=== PATIENT | female | born 1990 | race Caucasian/White ===

== ENCOUNTER 2018-11-23 16:15 | Emergency (ER) | payer MEDICAID ==
[~2018-11-23] VITALS: Ht 162.6 cm; Wt 104.3 kg
[~2018-11-23 16:15] MED LIST: ALBU90OI INH; BENZ100A PO; BIRTH CONTROL; BIRTH CONTROL PO; CODGUAEL PO; CYCL10 PO; Flonase 0.05% N16 GM; HYDCHL25 PO; IBUP800 PO; LISI5 PO; METF500 PO; Norco 5-325 Ta1 EACH PO; PSEU120ER PO; Percocet 5-3251 EACH PO; Valium5 MG PO; Zofran Odt8 MG SL
[2018-11-23] MEDS ORDERED: Norco 5-325 Ta1 EACH PO (16:59)
[2018-11-23] MEDS ORDERED: Robaxin-750750 MG PO (16:59)
[2018-11-23] MEDS ORDERED: PRED10 PO (16:59)
== END 2018-11-23 17:16 | disposition home or self-care (01) ==
LOC: ER 16:15
DX: M54.42 Lumbago with sciatica, left side (principal); G89.29 Other chronic pain; Z88.1 Allergy status to other antibiotic agents; Z79.899 Other long term (current) drug therapy; Z79.52 Long term (current) use of systemic steroids; Z79.84 Long term (current) use of oral hypoglycemic drugs; I10 Essential (primary) hypertension
CPT/HCPCS: 96372; 99283-25; A9270-GY; J1885

== ENCOUNTER 2019-02-28 11:35 | Inpatient (IN) | payer BC, MEDICAID ==
[~2019-02-28] VITALS: Ht 162.6 cm; Wt 139.2 kg
[~2019-02-28 11:35] MED LIST changes: -LISI5 PO; +PRED10 PO; +Prinivil10 MG PO; +Robaxin-750750 MG PO
[2019-02-28 12:12] LABS: Source, Urine Clean Catch
[2019-02-28 12:12] LABS: BASOPHILS ABSOLUTE AUTO 0.07 K/mm3 (0.00-0.23); BASOPHILS PERCENT AUTO 1 % (0-2); EOSINOPHILS ABSOLUTE AUTO 0.08 K/mm3 (0.00-0.68); EOSINOPHILS PERCENT AUTO 1 % (0-6); Hematocrit 49.7 % (33.0-51.0); IMMATURE GRAN ABSOLUTE AUTO 0.02 K/mm3 (0.00-0.10); IMMATURE GRAN PERCENT AUTO 0 % (0-1); LYMPHOCYTES ABSOLUTE AUTO 2.56 K/mm3 (0.84-5.20); LYMPHOCYTES PERCENT AUTO 24 % (21-46); MONOCYTES ABSOLUTE AUTO 0.51 K/mm3 (0.16-1.47); MONOCYTES PERCENT AUTO 5 % (4-13); Mean Corpuscular HGB 26.5 pg (26.0-34.0); Mean Corpuscular HGB Conc 30.2 g/dL (31.5-36.5); Mean Corpuscular Volume 88 fL (80-100); Mean Platelet Volume 9.9 fL (9.1-12.4); NEUTROPHILS ABSOLUTE AUTO 7.51 K/mm3 (1.96-9.15); NEUTROPHILS PERCENT AUTO 70 % (41-73); Platelet Count 463 K/mm3 (150-400); RDW Coefficient Variation 15.1 % (11.7-14.2); RDW Standard Deviation 48.7 fL (35.1-46.3); Red Blood Cell Count 5.66 M/mm3 (3.80-5.20); White Blood Cell Count 10.75 K/mm3 (4.00-11.30)
[2019-02-28 12:29] LABS: Alanine Aminotransfer (ALT/SGP 22 U/L (12-78); Albumin, Blood 3.8 g/dL (3.4-5.0); Alk Phos 53 U/L (50-136); Anion Gap 9 mmol/L (6-16); Aspartate Aminotrans (AST/SGOT 16 U/L (12-37); Bilirubin, Total 0.9 mg/dL (0.1-1.0); Blood Urea Nitrogen 15 mg/dL (8-24); CO2, Blood 25 mmol/L (21-32); Calcium, Blood 9.4 mg/dL (8.5-10.1); Chloride, Blood 105 mmol/L (98-108); Creatinine, Blood 0.94 mg/dL (0.40-1.00); Globulin, Blood 3.9 g/dL (2.2-4.0); Glomerular Filtration Rate >60 (60-); Glucose, Blood 90 mg/dL (70-99); Sodium, Blood 139 mmol/L (136-145); Total Protein, Blood 7.7 g/dL (6.4-8.2); Troponin I 0.045 ng/mL (0.000-0.040)
[2019-02-28 12:36] LABS: Appearance, Urine Hazy (Clear); Bilirubin, Urine Neg (Neg); Blood, Urine 1+ (Neg); Color, Urine Yellow (P-Yellow); Glucose Qualitative, Urine Neg (Neg); Ketones, Urine Neg (Neg); Leukocyte Esterase, Urine 1+ (Neg); Nitrite, Urine Neg (Neg); Protein, Urine 3+ (Neg); Urobilinogen, Urine 1+ (Normal)
[2019-02-28 12:55] LABS: Bacteria Mod /hpf; Red Blood Cells, Urine 0-2 /hpf (0-2); Squamous Epithelial Cells Many /hpf (Few)
[2019-02-28 12:56] LABS: Hyaline Casts 0-2 /lpf (0-2)
[2019-02-28] MEDS ORDERED: Hydrochloroth12.5 MG PO (14:14)
--- NOTE | 2019-02-28 15:21 | NUR ---
Echocardiogram completed.
--- NOTE | 2019-02-28 18:22 | NUR ---
SHIFT SUMMARY PT IS A NEW ADMISSION FROM ED THIS AFTERNOON. COMPLAINTS OF PAIN OR NAUSEA. PT ORIENTED TO ROOM. CALL LIGHT IN REACH. LABS DRAWN PER ORDERS. NO DISTRESS AT THIS TIME. WILL CONTINUE TO MONITOR AND REPORT TO ONCOMING RN.
--- NOTE | 2019-03-01 03:36 | NUR ---
shift summary: Pt still getting short of breath with exertion but pt states it's not so bad. Pt recieved lasix last pm and had over 2000 cc urine output. Pt to cat scan last pm to check for PE. Cortisol level drawn at 2300 last pm and dexamethasone given shortly after. Lungs diminished throughout but no wheezing heard.
[2019-03-01 08:24] LABS: Anion Gap 10 mmol/L (6-16); Blood Urea Nitrogen 14 mg/dL (8-24); Bun/Creatinine Ratio 16.1 (12.0-20.0); CO2, Blood 25 mmol/L (21-32); Calcium, Blood 8.8 mg/dL (8.5-10.1); Chloride, Blood 104 mmol/L (98-108); Creatinine, Blood 0.87 mg/dL (0.40-1.00); Glomerular Filtration Rate >60 (60-); Glucose, Blood 86 mg/dL (70-99); Potassium, Blood 3.9 mmol/L (3.5-5.5); Sodium, Blood 139 mmol/L (136-145)
[2019-03-01 08:26] LABS: Troponin I 0.031 ng/mL (0.000-0.040)
--- NOTE | 2019-03-01 18:03 | NUR ---
SHIFT SUMMARY A AND OX3. INDEPENDENT IN ROOM. DENIES ANY PAIN OR DISCOMFORT. MULTIPLE FAMILY MEMBERS IN ROOM THROUGHOUT DAY. NEW DX CHF AWAITING CARDIOLOGY CONSULT. EATING AND DRINKING WELL. MORBID OBESITY. IV LASIX. PLEASANT CALM. SPOUSE TO STAY WITH PATIENT OVERNIGHT.
[2019-03-02 05:20] LABS: Anion Gap 6 mmol/L (6-16); Blood Urea Nitrogen 18 mg/dL (8-24); CHOL/HDL RATIO 4.6; CO2, Blood 32 mmol/L (21-32); Calcium, Blood 8.7 mg/dL (8.5-10.1); Chloride, Blood 103 mmol/L (98-108); Cholesterol 101 mg/dL (50-200); Creatinine, Blood 1.06 mg/dL (0.40-1.00); Glomerular Filtration Rate >60 (60-); Glucose, Blood 88 mg/dL (70-99); HDL Cholesterol 22 mg/dL (>39); LDL/HDL RATIO 2.4; Low Density Lipoprotein Chol 53 mg/dL (0-110); Potassium, Blood 3.4 mmol/L (3.5-5.5); Sodium, Blood 141 mmol/L (136-145); Triglycerides 129 mg/dL (30-140); Very Low Density Lipoprot Chol 25 mg/dL (6-28)
--- NOTE | 2019-03-02 12:41 | NUR ---
DR CUELLAR IN TO SEE PT THIS AM. STATE TO RE-CALL CARDIOLOGY CONSULT. [facility] CALLED, STATE DR GRISSOM EXPERT WITNESS & IS AWARE OF NEED FOR CONSULT.
--- NOTE | 2019-03-02 16:00 | NUR ---
SUMMARY PT IS A/O X4, IND IN ROOM, PLEASANT AFFECT. STATE NO SOB @ REST, MILD SOB W EXERTION, STATE FEELING SOMEWHAT IMPROVED. TRACE BLE EDEMA. LUNGS CLEAR, DECREASED, BIOX >90% ON RA. DR CUELLAR STATE THIS AM TO RECALL CARDIAC CONSULT, CALLED TO DR GRISSOM OFFICE. NO CARDIOLOGY VISIT YET TODAY, NOTIFIED CARDIOLOGY OFFICE STATE DR GRISSOM DECLINE CONSULT R/T NOT BEING DROSSER YESTERDAY, STATE TO NOTIFY DROSSER FROM PREVIOUS DAY. INFORMED DR CUELLAR, HE CALL DAY[place] TO DR FERRELL HOW STATE HE WILL SEE PT THIS AFTERNOON. PT INFORMED.
--- NOTE | 2019-03-03 04:58 | NUR ---
DRAGGER SUMMARY NO ACUTE CHANGES THIS SHIFT. PT AAOX4 AND INDEPENDENT IN ROOM. PT HAS BEEN NPO SINCE MIDNIGHT EXCEPT FOR WATER. MD ORDER STATES COMPLETE NPO AT BREAKFAST. PT HAS ONLY BEEN TAKING SMALL SIPS OF WATER. PT TO HAVE ANGIOGRAM LATER TODAY. VSS, WILL CONTINUE TO MONITOR.
[2019-03-03 05:51] LABS: Anion Gap 8 mmol/L (6-16); Blood Urea Nitrogen 22 mg/dL (8-24); Bun/Creatinine Ratio 22.2 (12.0-20.0); CO2, Blood 29 mmol/L (21-32); Calcium, Blood 8.9 mg/dL (8.5-10.1); Chloride, Blood 102 mmol/L (98-108); Creatinine, Blood 0.99 mg/dL (0.40-1.00); Glomerular Filtration Rate >60 (60-); Glucose, Blood 89 mg/dL (70-99); Potassium, Blood 3.5 mmol/L (3.5-5.5); Sodium, Blood 139 mmol/L (136-145)
--- NOTE | 2019-03-03 13:23 | NUR ---
TO [facility] IN [facility] AT 1315 BY W/C. HER HAS AWAKENED, PACKED THEIR BELONGINGS AND TOOK THEM WITH HIM OUT OF THE ROOM. SHE HAS HAD AN UNEVENTFUL MORNING. CAME BY MID-MORNING TO HAVE HER SIGN CONSENT.
--- NOTE | 2019-03-03 15:22 | NUR ---
1 CC OF AIR WAS REMOVED FROM THE TR BAND. The pt had been c/o pain 8/10 in her right thumb, worse with movement of the thumb. Pulses are palpable, the area of the right arm and right hand is soft, without any evidence of bleeding, hematoma, swelling, or bleeding. Fingers are warm, pink, and dry with brisk capillary refill. 1 cc of air removed due to the pain. Denies numbness. States afterwards that it feels a little better. No bleeding noted. TR band remains in place, and white immobilizer board is in place. Pt has been OOB to walk to the bathroom to void.
--- NOTE | 2019-03-03 16:51 | NUR ---
REMOVED 1CC FROM TR BAND. NO BLEEDING NOTED FROM PREVIOUS REMOVAL OF 1CC. PT STATES NUMBNESS HAS RESOLVED AND PAIN IN GOING DOWN. NO HEMATOMA, SWELLING OR DISCOLORATION NOTED. PULSES PALPABLE ABOVE AND BELOW SIDE. SKIN SOFT AND TENDER ON PALPABLE ABOVE SITE. CAP REFIL IS BRISK. WILL CONTINUE TO MONITOR
--- NOTE | 2019-03-03 17:31 | NUR ---
2 Additional cc of air removed from the TR band at this time. Thept is ambulatory to the bathroom, sitting on the side of the bed afterwards, eating dinner. She is refraining from use of the right arm, as instructed. Radial artery access site remains unchanged from my prior assessment.
--- NOTE | 2019-03-03 18:43 | NUR ---
2 CC AIR REMOVED FROM THE TR BAND. SITE REMAINS BEFORE.
--- NOTE | 2019-03-03 19:38 | NUR ---
PATIENT LEFT AND PATIENT IS FEELING VERY EMOTIONAL AND SAD. VITALS STABLE. CMS INTACT. NO SIGNS OF BLEEDING ON RIGHT RADIAL SITE. 2CC OF AIR TAKING OUT. DENIES ANY PAIN AT THIS TIME.
--- NOTE | 2019-03-03 20:03 | NUR ---
TRANSFER NOTE/SHIFT SUMMARY RECEIVED BEDSIDE REPORT FORM DARYL BERRY IN [facility]. PT TO ROOM AT 1415. SBA TRANSFERED TO BED FROM WHEELCHAIR. PT A&Ox4, CALM AND COOPERATIVE WITH CARE. RIGHT RADIAL SITE ASSESSED AND MONITORED T/O SHIFT, NUMBNESS TO THUMB TIP AND PAIN TO WRIST NOTED AND RELEASED 1CC AND TYLENOL x1 FOR PAIN. A TOTAL OF 6CC RELEASED FROM THE TR BAND DURING SHIFT. PT REPORTS SOB WITH EXERTION, >90% ON RA. PT RECEIVED DOSE OF IV LASIX AFTER PROCEDUE. PT DENIES NAUSEA AND HAS GOOD APPETITE. VSS. NO OTHER ACUTE CHANGES NOTED DURING SHIFT. REPORTS GIVEN TO ONCOMING RN.
--- NOTE | 2019-03-03 20:46 | NUR ---
PATIENT SITTING AT SIDE OF BED. DENIES ANY PAIN. NO CHANGE IN RADIAL SITE. CMS INTACT. 2CC OF AIR TAKEN OUT.
--- NOTE | 2019-03-03 21:22 | NUR ---
PATIENT DENIES ANY PAIN. SITTING IN BED. VITALS STABLE. CMS INTACT. NO SIGNS OF BLEEDING NOTED. 2 CC OF AIR TAKEN OUT.
--- NOTE | 2019-03-03 22:14 | NUR ---
PATIENT DENIES ANY PAIN. SITTING AT SIDE OF BED. TAKEN OUT 1CC OF AIR. NO AIR REMAINING IN TR BAND. CMS INTACT NO SIGNS OF BLEEDING. WILL CONTINUE TO MONITOR.
--- NOTE | 2019-03-03 23:35 | NUR ---
PATIENT SITTING UP IN BED. VITALS STABLE. NO SIGNS OF BLEEDING NOTED. CMS INTACT. TAKEN TR BAND OFF CLEANED SITE AND APPLIED TEGADERM. PLACED ARM BOARD BACK ON. PATIENT DENIES ANY OTHER NEEDS AT THIS TIME.
[2019-03-04 03:55] LABS: Anion Gap 7 mmol/L (6-16); Blood Urea Nitrogen 25 mg/dL (8-24); Bun/Creatinine Ratio 24.8 (12.0-20.0); CO2, Blood 32 mmol/L (21-32); Calcium, Blood 9.1 mg/dL (8.5-10.1); Chloride, Blood 100 mmol/L (98-108); Creatinine, Blood 1.01 mg/dL (0.40-1.00); Glomerular Filtration Rate >60 (60-); Glucose, Blood 98 mg/dL (70-99); Potassium, Blood 3.9 mmol/L (3.5-5.5); Sodium, Blood 139 mmol/L (136-145)
--- NOTE | 2019-03-04 05:06 | NUR ---
PATIENT CONTINUES TO SHOW NO SIGNS OF BLEEDING AT RIGHT RADIAL SITE. PATIENT ABLE TO SLEEP A LITTLE. PATIENT SLEEPS IN BED IN HIGH HORVATH'S. DENIES ANY PAIN.
--- NOTE | 2019-03-04 08:32 | NUR ---
AM NOTE. ASSUMED CARE OF PT APROX 0700, PT IS A&Ox4 AND IND IN THE ROOM. PT WAS ADMITTED FOR DYSPNEA, AND IS S/P ANGIO FROM YESTERDAY. RIGHT WRIST SITE IS C/D/I WITH NO REDNESS, SWELLING OR HEMATOMA NOTED. PT STATES SOME DISCOMFORT AT THE SITE. PT IS NSR IN THE 80'S-90'S PER BUSINESS TEST ANALYST. PT DENIES ANY CHEST PAIN/PRESSURE. L/S CLEAR T/O AND DIM IN THE BASES BUT BECOMES SLIGHTLY SOB WHEN WALKING TO THE BATHROOM. PT HAS 1+ PITTING EDEMA TO HER BLE AND TRACE EDEMA TO HER ABD AREA, THIS HAS IMPROVED PER PT AND PER NOC SHIFT RN REPORT. PT'S VS STABLE AT THIS TIME. WILL CONTINUE TO MONITOR.
[2019-03-04] MEDS ORDERED: ATOR10 PO (12:50)
[2019-03-04] MEDS ORDERED: CARV6.25 PO (12:51)
[2019-03-04] MEDS ORDERED: CLOP75 PO (12:51)
[2019-03-04] MEDS ORDERED: ENTRESTO 24 MG1 EACH PO (12:52)
[2019-03-04] MEDS ORDERED: Aldactone25 MG PO (12:53)
[2019-03-04] MEDS ORDERED: TORSE20 PO (12:53)
== END 2019-03-04 15:54 | disposition home or self-care (01) | DRG 286 ==
LOC: ER 11:35 → MEDS 11:36 → PCU 03-03 14:19
PROVIDERS: Emergency Medicine; Internal Medicine Interventional Cardiology; ADMIT Internal Medicine
PROC: B2111ZZ Fluoroscopy of Multiple Coronary Arteries using Low Osmolar Contrast (ICD-10-PCS; principal; 2019-03-03)
PROC: B2151ZZ Fluoroscopy of Left Heart using Low Osmolar Contrast (ICD-10-PCS; 2019-03-03)
PROC: 4A023N7 Measurement of Cardiac Sampling and Pressure, Left Heart, Percutaneous Approach (ICD-10-PCS; 2019-03-03)
DX: I11.0 Hypertensive heart disease with heart failure (principal); I50.21 Acute systolic (congestive) heart failure; Z68.42 Body mass index [BMI] 45.0-49.9, adult; E28.2 Polycystic ovarian syndrome; I27.20 Pulmonary hypertension, unspecified; E66.01 Morbid (severe) obesity due to excess calories; I25.10 Atherosclerotic heart disease of native coronary artery without angina pectoris; L83 Acanthosis nigricans; E87.6 Hypokalemia; Z79.02 Long term (current) use of antithrombotics/antiplatelets
CPT/HCPCS: 36415; 71046; 71260; 80048; 80053; 80061; 81001; 81025; 82024; 82533; 83036; 83880; 84145; 84439; 84443; 84484; 85025; 87086; 93005; 93010; 93306; 93458; 96372; 96374; 96375; 99152; 99153; 99285-25; A9270; C1769; C1894; G0378; J0360; J1644; J1650; J1940; J2250; J3010; J7030; Q9967

== ENCOUNTER 2019-03-15 09:19 | Emergency (ER) | payer BC ==
[~2019-03-15] VITALS: Ht 160 cm; Wt 121.6 kg
[~2019-03-15 09:19] MED LIST changes: +ATOR10 PO; +Aldactone25 MG PO; +CARV6.25 PO; +CLOP75 PO; +ENTRESTO 24 MG1 EACH PO; +Hydrochloroth12.5 MG PO; +TORSE20 PO
[2019-03-15] MEDS ORDERED: METOPROLOL SUCC25 MG PO (11:27)
[2019-03-15 11:34] LABS: BASOPHILS ABSOLUTE AUTO 0.11 K/mm3 (0.00-0.23); BASOPHILS PERCENT AUTO 1 % (0-2); EOSINOPHILS ABSOLUTE AUTO 0.34 K/mm3 (0.00-0.68); EOSINOPHILS PERCENT AUTO 3 % (0-6); Hemoglobin 15.8 g/dL (11.5-16.0); IMMATURE GRAN ABSOLUTE AUTO 0.04 K/mm3 (0.00-0.10); IMMATURE GRAN PERCENT AUTO 0 % (0-1); LYMPHOCYTES ABSOLUTE AUTO 2.59 K/mm3 (0.84-5.20); LYMPHOCYTES PERCENT AUTO 22 % (21-46); MONOCYTES ABSOLUTE AUTO 0.98 K/mm3 (0.16-1.47); MONOCYTES PERCENT AUTO 8 % (4-13); Mean Corpuscular HGB 25.8 pg (26.0-34.0); Mean Corpuscular HGB Conc 30.4 g/dL (31.5-36.5); Mean Corpuscular Volume 85 fL (80-100); Mean Platelet Volume 10.9 fL (9.1-12.4); NEUTROPHILS ABSOLUTE AUTO 7.91 K/mm3 (1.96-9.15); NEUTROPHILS PERCENT AUTO 66 % (41-73); Platelet Count 343 K/mm3 (150-400); RDW Coefficient Variation 17.3 % (11.7-14.2); RDW Standard Deviation 49.4 fL (35.1-46.3); Red Blood Cell Count 6.12 M/mm3 (3.80-5.20); White Blood Cell Count 11.97 K/mm3 (4.00-11.30)
[2019-03-15 12:12] LABS: Alanine Aminotransfer (ALT/SGP 48 U/L (12-78); Albumin, Blood 4.7 g/dL (3.4-5.0); Albumin/Globulin Ratio 1.2 (0.8-1.8); Alk Phos 62 U/L (50-136); Anion Gap 8 mmol/L (6-16); Aspartate Aminotrans (AST/SGOT 33 U/L (12-37); Bilirubin, Total 1.2 mg/dL (0.1-1.0); Blood Urea Nitrogen 32 mg/dL (8-24); Bun/Creatinine Ratio 31.7 (12.0-20.0); CO2, Blood 21 mmol/L (21-32); Calcium, Blood 10.2 mg/dL (8.5-10.1); Chloride, Blood 107 mmol/L (98-108); Creatinine, Blood 1.01 mg/dL (0.40-1.00); Glomerular Filtration Rate >60 (60-); Glucose, Blood 93 mg/dL (70-99); Potassium, Blood 4.3 mmol/L (3.5-5.5); Sodium, Blood 136 mmol/L (136-145); Total Protein, Blood 8.7 g/dL (6.4-8.2); Troponin I <0.015 ng/mL (0.000-0.040)
[2019-03-15] MEDS ORDERED: Norco 5-325 Ta1 EACH PO (12:51)
[2019-03-15] MEDS ORDERED: METPRE4DP PO (12:51)
[2019-03-15] MEDS ORDERED: Robaxin-750750 MG PO (12:51)
== END 2019-03-15 13:22 | disposition home or self-care (01) ==
LOC: ER 09:19
PROVIDERS: Emergency Medicine
DX: M54.32 Sciatica, left side (principal); R00.2 Palpitations; Z88.1 Allergy status to other antibiotic agents; Z79.899 Other long term (current) drug therapy; I11.0 Hypertensive heart disease with heart failure; I50.21 Acute systolic (congestive) heart failure
CPT/HCPCS: 36415; 71046; 80053; 83880; 84484; 85025; 93005; 93010; 96374; 96375; 96376; 99285-25; J2405; J3010

== ENCOUNTER 2019-07-26 21:40 | Emergency (ER) | payer BC ==
[~2019-07-26] VITALS: Ht 162.6 cm; Wt 122.5 kg
[~2019-07-26 21:40] MED LIST changes: +METOPROLOL SUCC25 MG PO; +METPRE4DP PO
[2019-07-26 23:01] LABS: BASOPHILS ABSOLUTE AUTO 0.03 K/mm3 (0.00-0.23); BASOPHILS PERCENT AUTO 0 % (0-2); EOSINOPHILS ABSOLUTE AUTO 0.16 K/mm3 (0.00-0.68); EOSINOPHILS PERCENT AUTO 1 % (0-6); Hemoglobin 13.2 g/dL (11.5-16.0); IMMATURE GRAN ABSOLUTE AUTO 0.06 K/mm3 (0.00-0.10); IMMATURE GRAN PERCENT AUTO 0 % (0-1); LYMPHOCYTES PERCENT AUTO 20 % (21-46); MONOCYTES ABSOLUTE AUTO 0.53 K/mm3 (0.16-1.47); MONOCYTES PERCENT AUTO 4 % (4-13); Mean Corpuscular HGB 31.1 pg (26.0-34.0); Mean Corpuscular HGB Conc 32.2 g/dL (31.5-36.5); Mean Corpuscular Volume 97 fL (80-100); NEUTROPHILS ABSOLUTE AUTO 10.03 K/mm3 (1.96-9.15); NEUTROPHILS PERCENT AUTO 74 % (41-73); RDW Coefficient Variation 13.2 % (11.7-14.2); RDW Standard Deviation 46.8 fL (35.1-46.3); Red Blood Cell Count 4.25 M/mm3 (3.80-5.20); White Blood Cell Count 13.51 K/mm3 (4.00-11.30)
[2019-07-26 23:04] LABS: Mean Platelet Volume 10.7 fL (9.1-12.4); Platelet Count 252 K/mm3 (150-400)
[2019-07-26 23:13] LABS: Alanine Aminotransfer (ALT/SGP 29 U/L (12-78); Albumin, Blood 3.8 g/dL (3.4-5.0); Alk Phos 66 U/L (50-136); Anion Gap 7 mmol/L (6-16); Aspartate Aminotrans (AST/SGOT 16 U/L (12-37); Bilirubin, Total 0.4 mg/dL (0.1-1.0); Blood Urea Nitrogen 14 mg/dL (8-24); CO2, Blood 27 mmol/L (21-32); Calcium, Blood 9.2 mg/dL (8.5-10.1); Chloride, Blood 105 mmol/L (98-108); Creatinine, Blood 0.78 mg/dL (0.40-1.00); Glomerular Filtration Rate >60 (60-); Glucose, Blood 165 mg/dL (70-99); Potassium, Blood 3.9 mmol/L (3.5-5.5); Sodium, Blood 139 mmol/L (136-145); Total Protein, Blood 7.8 g/dL (6.4-8.2); Troponin I <0.015 ng/mL (0.000-0.040)
[2019-07-26] MEDS ORDERED: ACETAMINOPHEN500 MG PO (23:34)
== END 2019-07-26 23:35 | disposition home or self-care (01) ==
LOC: ER 21:40
PROVIDERS: Emergency Medicine
DX: R07.9 Chest pain, unspecified (principal); Z88.1 Allergy status to other antibiotic agents; Z79.899 Other long term (current) drug therapy; Z79.52 Long term (current) use of systemic steroids; I11.0 Hypertensive heart disease with heart failure; I50.21 Acute systolic (congestive) heart failure
CPT/HCPCS: 36415; 71046; 80053; 83690; 83880; 84484; 85025; 85379; 93005; 93010; 96361; 96374; 99284-25; J2405; J7030